=== PATIENT | female | born 1995 | race Hispanic/Latino ===

== ENCOUNTER 2017-04-30 04:03 | Emergency (ER) | payer SELFPAY ==
[2017-04-30 05:25] LABS: #Basophils 0.1 thou/uL (0.0-0.2); #Eosinphils 0.1 thou/uL (0.0-0.7); #Lymphocytes 3.2 thou/uL (1.20-3.40); #Monocytes 0.7 thou/uL (0.11-0.59); #Neutrophils 2.8 thou/uL (1.40-6.50); %Basophils 0.9 % (0.0-1.0); %Eosinophils 1.3 % (0.0-10.0); %Monocytes 9.5 % (0.0-10.0); Hematocrit 40.7 % (36.0-47.0); Mean Platelet Volume 7.9 fL (7.4-10.4); White Blood Cell (WBC) Count 6.9 thou/uL (4.8-10.8)
[2017-04-30 05:31] LABS: Bilirubin Negative (Negative); Blood, Urine Large (Negative); Glucose, Urine (Dipstick) Negative (Negative); Ketone, Urine Negative (Negative); Nitrite Negative (Negative); Protein, Urine (Dipstick) Negative (Neg-Trace); Urobilinogen 0.2 mg/dL (0.2-1.0)
[2017-04-30 05:33] LABS: Bacteria/HPF None Seen HPF (None Seen); Hyaline Casts/LPF 0-3 HYALINE CAST LPF (0-3 Hyaline); Squamous Epithelial 0-3 HPF (0-3)
== END 2017-04-30 07:18 | disposition home or self-care (01) ==
LOC: ERS 04:03
DX: N93.9 Abnormal uterine and vaginal bleeding, unspecified (principal); F41.9 Anxiety disorder, unspecified; J45.909 Unspecified asthma, uncomplicated
CPT/HCPCS: 81003; 81015; 81025; 85025; 86850; 86900; 86901; 87480; 87491; 87510; 87591; 87660; 99284

== ENCOUNTER 2017-09-07 17:20 | Emergency (ER) | payer OTHER, SELFPAY ==
[2017-09-07 18:18] LABS: BHCG - Serum POSITIVE (NEGATIVE); Pregs Control Background? CLEAR/WHITE (CLR/WHITE); Pregs Control Bar Appear? YES (CONTROL BAR)
[2017-09-07 18:27] LABS: ALT (SGPT) 36 U/L (8-55); AST (SGOT) 26 U/L (5-34); Albumin 3.9 g/dL (3.5-5.0); Alkaline Phosphatase 56 U/L (40-150); Anion Gap 11 mmol/L (10-20); BUN (Urea Nitrogen) 9 mg/dL (7.0-18.7); Bilirubin, Total 0.3 mg/dL (0.2-1.2); Calc. Creatinine Clearance 0 mL/min (70-130); Calcium 9.4 mg/dL (7.8-10.44); Carbon Dioxide 24 mmol/L (22-29); Chloride 105 mmol/L (98-107); Estimated GFR-MDRD Greater than 90; Globulin 3.3 g/dL (2.4-3.5); Glucose 87 mg/dL (70-105); Potassium 3.9 mmol/L (3.5-5.1); Protein, Total 7.2 g/dL (6.0-8.3); Sodium 136 mmol/L (136-145)
[2017-09-07 18:29] LABS: Mean Corpuscular HGB CONC 34.8 g/dL (32.0-36.0); Mean Corpuscular Hemoglobin 30.8 pg (27.0-31.0); Mean Corpuscular Volume 88.5 fl (81.0-99.0); Mean Platelet Volume 7.3 fL (7.4-10.4); Platelet Count 307 thou/uL (130-400); RBC Distribution Width 11.7 % (11.5-14.5); Red Blood Cell (RBC) Count 4.53 mill/uL (4.20-5.40); White Blood Cell (WBC) Count 8.5 thou/uL (4.8-10.8)
[2017-09-07 18:39] LABS: Band 7 % (5-11); Lymphocytes 37 % (21-51); MDiff Complete? YES; Monocytes 4 % (0-10); Neutrophil 46 % (42-75); PLT Morphology Comment Appears Adequate; RBC Morphology Normal; Reactive Lymphocytes 6 % (0-10)
[2017-09-07] MEDS ORDERED: metroNIDAZOLE 250 MG TAB ONE (21:06)
[2017-09-09 19:56] LABS: Chlamydia by PCR Not Detected (NotDetected); GC by PCR Not Detected (NotDetected)
== END 2017-09-07 21:57 | disposition home or self-care (01) ==
LOC: ERS 17:20
DX: O23.591 Infection of other part of genital tract in pregnancy, first trimester (principal); N76.0 Acute vaginitis; O20.9 Hemorrhage in early pregnancy, unspecified; Z3A.01 Less than 8 weeks gestation of pregnancy; O99.511 Diseases of the respiratory system complicating pregnancy, first trimester; J45.909 Unspecified asthma, uncomplicated; O99.341 Other mental disorders complicating pregnancy, first trimester; F41.9 Anxiety disorder, unspecified
CPT/HCPCS: 36415; 80053; 84702; 84703; 85025; 87480; 87491; 87510; 87591; 87660

== ENCOUNTER 2017-10-11 00:40 | Emergency (ER) | payer OTHER ==
[2017-10-11 01:17] LABS: Bilirubin Negative (Negative); Blood, Urine Large (Negative); Clarity CLEAR (Clear); Glucose, Urine (Dipstick) Negative (Negative); Leukocyte Negative (Negative); Nitrite Negative (Negative); Protein, Urine (Dipstick) Negative (Neg-Trace); Specific Gravity, Urine 1.008 (1.002-1.036)
[2017-10-11 01:19] LABS: Bacteria/HPF None Seen HPF (None Seen); Hyaline Casts/LPF 0-3 HYALINE CAST LPF (0-3 Hyaline); Pathc Cast-AUWi Flag 0.29 (0-2.49); Squamous Epithelial 0-3 HPF (0-3); WBC/HPF 0-3 HPF (0-3)
[2017-10-11 01:30] LABS: #Eosinphils 0.1 thou/uL (0.0-0.7); #Lymphocytes 3.7 thou/uL (1.20-3.40); #Monocytes 0.6 thou/uL (0.11-0.59); #Neutrophils 4.3 thou/uL (1.40-6.50); %Basophils 0.2 % (0.0-1.0); %Eosinophils 0.7 % (0.0-10.0); %Monocytes 7.1 % (0.0-10.0); Hemoglobin 13.2 g/dL (12.0-16.0); Mean Corpuscular HGB CONC 33.5 g/dL (32.0-36.0); Mean Corpuscular Hemoglobin 29.8 pg (27.0-31.0); Mean Corpuscular Volume 89.1 fl (81.0-99.0); Platelet Count 268 thou/uL (130-400); RBC Distribution Width 11.6 % (11.5-14.5); Red Blood Cell (RBC) Count 4.41 mill/uL (4.20-5.40); White Blood Cell (WBC) Count 8.7 thou/uL (4.8-10.8)
--- NOTE | 2017-10-11 07:50 | ULT ---
PRELIMINARY REPORT/[facility]/EMERGENCY AFTER HOURS PROCEDURE: EXAM: US Uterus, Limited EXAM DATE/TIME: Exam ordered 10/11/2017 1:07 AM CLINICAL HISTORY: 21 years old, female; Pain and signs and symptoms; Lmp or gestational age (in weeks): 12w3d; Antepart um complications; Bleeding; complicated by abdominal or pelvic pain; Left lower quadrant; S econd trimester; ; Patient HX: Light bleeding with urination, llq pain TECHNIQUE: Real-time ultrasound of the maternal uterus (limited) with image documentation. COMPARISON: No relevant prior studies available. FINDINGS: Fetus: There is a live intrauterine with estimated gestational age of 12 weeks 3 days. Position: Fetus is in transverse position. There is adequate amniotic fluid. Heart rate: heart rate measures 171 beats per minute. Placenta: There is a low-lying posterior placenta, grade 0. Vasa previa cannot be excluded. Adnexa: LEFT ovary measures 3.8 x 2.6 x 2.9 cm and contains a 1.8 cm simple cyst. The RIGHT ovary is not visualized. IMPRESSION: 1. There is a live intrauterine with estimated gestational age of 12 weeks 3 days. 2. Low lying placenta. Continued followup is advised. Thank you for allowing us to participate in the care of your patient. Dictated and Authenticated by: Ted Wiseman MD 10/11/2017 2:19 AM Central Time ([place] & [place]) FINAL REPORT ULTRASOUND PELVIC WITH DOPPLER: Date: 10/11/17 HISTORY: Vaginal bleeding. COMPARISON: None. TECHNIQUE: Real-time Quintero scale with color Doppler and spectral analysis of the pelvis performed via transabdomi nal approach. FINDINGS/IMPRESSION: Findings and impression are concordant with the preliminary report by Valeri. POS: [facility]
== END 2017-10-11 02:35 | disposition home or self-care (01) ==
LOC: ERS 00:40
DX: O20.0 Threatened abortion (principal); O99.511 Diseases of the respiratory system complicating pregnancy, first trimester; J45.909 Unspecified asthma, uncomplicated; O99.341 Other mental disorders complicating pregnancy, first trimester; F41.9 Anxiety disorder, unspecified; F32.9 Major depressive disorder, single episode, unspecified; Z3A.12 12 weeks gestation of pregnancy
CPT/HCPCS: 36415; 76856; 81003; 81015; 84702; 85025; 86900; 86901; 93976

== ENCOUNTER 2017-10-11 09:08 | Emergency (ER) | payer OTHER | END 2017-10-11 12:00 | disposition home or self-care (01) | LOC: ERS 09:08 | DX: O20.0 Threatened abortion (principal); O99.511 Diseases of the respiratory system complicating pregnancy, first trimester; J45.909 Unspecified asthma, uncomplicated; O99.341 Other mental disorders complicating pregnancy, first trimester; F41.9 Anxiety disorder, unspecified; F32.9 Major depressive disorder, single episode, unspecified; Z3A.12 12 weeks gestation of pregnancy | CPT/HCPCS: 36415; 76856; 81003; 81015; 84702; 85025; 86900; 86901; 93976; 99284 ==

== ENCOUNTER 2017-11-03 18:02 | Emergency (ER) | payer OTHER ==
[2017-11-03] MEDS ORDERED: Acetaminophen 500 MG TAB ONE (19:11)
== END 2017-11-03 20:05 | disposition home or self-care (01) ==
LOC: ERS 18:02
DX: O98.512 Other viral diseases complicating pregnancy, second trimester (principal); B34.9 Viral infection, unspecified; O99.512 Diseases of the respiratory system complicating pregnancy, second trimester; J45.909 Unspecified asthma, uncomplicated; O99.342 Other mental disorders complicating pregnancy, second trimester; F41.9 Anxiety disorder, unspecified; F32.9 Major depressive disorder, single episode, unspecified; Z3A.15 15 weeks gestation of pregnancy
CPT/HCPCS: 87081; 87430; 99283

== ENCOUNTER 2018-02-07 19:41 | Day surgery (SDC) | payer OTHER ==
[2018-02-07 20:28] VITALS: BP 108/66; TEMP 98.3; BMI 34.6
--- NOTE | 2018-02-07 21:12 | PDOC.FPROB ---
FMR OB H&P: HPI - History of Present Illness Chief Complaint: cramps, back pain History of Present Illness: This is a 22 yo F @ 29wks by LMP c/w 12w3d sono here for cramps and back pain. The cramps have been occuring 3-4 times a day for 2 days. The cramps are located in the upper abdomen and do not radiate. They are exacerbated by walking around, nothing has made them better. The back pain started on Sunday, no pain on Sunday, and the pain returned today. The pain is located in the lower back, is intermittent, and dull. States she feels vaginal pressure. Patient endorses vaginal discharge that was white and now clear - no odor. States she has had increased frequency of urination but no burning, itching or irritation with urination. Patient also endorses nausea, with no vomiting, and diarrhea. The diarrhea has been occuring about 1-3 X per day, is loose, watery, non-bloody. Denies fever, SOB, headache, chest pain, vision changes, or LLE swelling. Primary Care Physician: Kalin FMR OB H&P: Current - Care : 1 Para: 0 Gestational age: 29 Due date: 04/25/18 Dating Criteria: LMP c/w 12.3wk sono Course/Complications: hyperemesis gravidarum - OB Labs Blood type: O RH: positive Antibody Screen: negative HIV: negative RPR: negative HepBsAg: negative Rubella: immune Gonorrhea: negative Chlamydia: negative GBS: unknown H&H: 13.1/38.8 FMR OB H&P: History - Past Medical History PMH: asthma - Surgical History Sx History: none - Social History Social History: denies alcohol, tobacco or drug use - Family History Family History: mother - DM FMR OB H&P: ROS - Review of Systems General: denies: fever/chills, fatigue Eyes: denies: vision changes, double vision, scotomas, floaters Cardiovascular: denies: chest pain, palpitation, edema Respiratory: denies: shortness of breath Gastrointestinal: reports: abdominal pain, cramping, nausea, diarrhea. denies: vomiting, constipation, bright red blood, dark black tarry stools Genitourinary (Female): reports: polyuria, vaginal discharge, vaginal pressure. denies: incontinence, dysuria, hematuria, vaginal pain, vaginal bleeding, contractions FMR OB H&P: Vital Signs - Maternal Vital signs: Vital Signs - First Documented Temp Pulse Resp BP 98.3 F 81 20 108/66 02/07/18 20:19 02/07/18 20:19 02/07/18 20:19 02/07/18 20:19 - Heart Tones Baseline: 140 Variability: moderate Acceleration: present Deceleration: absent Category: category 1 FMR OB H&P: Physical Exam - Physical Exam General: NAD, awake, alert and oriented HEENT: normocephalic and atraumatic, EOMI, MMM, grossly normal vision, grossly normal hearing Neck: FROM Chest: non-tender to palpation, no lesions Heart: RRR, normal S1/S2, no murmurs/rubs/gallops General: CTAB, no respiratory distress, good air movement, no wheezing Abdomen: gravid, non-tender, bowel sound present Musculoskeletal: FROM in all four extremities Skin: no rash, good tugor Psychiatric: intact recent and remote memory, good judgement and insight - Pelvic Exam Vulva: normal hair distribution, no masses, no lesions Deviation from normal: thin, white discharge, no odor Cervix: no masses, no lesions, no blood Deviation from normal: closed FMR OB H&P: A/P - Problem List (1) Intrauterine Current Visit: Yes Status: Acute Code(s): Z34.90 - ENCNTR FOR SUPRVSN OF NORMAL , UNSP, UNSP TRIMESTER Disposition: This is a 22 yo F G1PO presenting for cramps and back pain. sIUP - Will perform sterile spec exam - spec exam findings: creamy white discharge, no odor - Will order FFN, VP3 - Will obtain UA - Encourage PO hydration Case discussed with Dr. Virk Discussion: Date/Time: 02/07/182109 This H&P was discussed with [] and [] who agree with the above documentation and plan.
[2018-02-07 22:12] LABS: FFN Internal QC Analyzer PASS (PASS); FFN Internal QC Cassette PASS (PASS); Fetal Fibronectin Negative (Negative)
[2018-02-07 22:22] LABS: Bilirubin Negative (Negative); Blood, Urine Negative (Negative); Clarity CLEAR (Clear); Glucose, Urine (Dipstick) Negative (Negative); Leukocyte Negative (Negative); Nitrite Negative (Negative); Protein, Urine (Dipstick) Negative (Neg-Trace); Specific Gravity, Urine 1.008 (1.002-1.036); Urobilinogen 0.2 mg/dL (0.2-1.0); pH, Urine 6.5 (5.0-9.0)
[2018-02-07 22:23] LABS: Bacteria/HPF None Seen HPF (None Seen); Hyaline Casts/LPF 0-3 HYALINE CAST LPF (0-3 Hyaline); Pathc Cast-AUWi Flag 0.14 (0-2.49); RBC/HPF 0-3 HPF (0-3); Squamous Epithelial 0-3 HPF (0-3); WBC/HPF 0-3 HPF (0-3)
== END 2018-02-07 23:10 | disposition home or self-care (01) ==
LOC: L&D/OP 19:41
PROVIDERS: ATTEND Obstetrics & Gynecology
DX: O99.89 Other specified diseases and conditions complicating pregnancy, childbirth and the puerperium (principal); R10.10 Upper abdominal pain, unspecified; M54.5 Low back pain; N89.8 Other specified noninflammatory disorders of vagina; O99.513 Diseases of the respiratory system complicating pregnancy, third trimester; J45.909 Unspecified asthma, uncomplicated; O21.0 Mild hyperemesis gravidarum; Z3A.29 29 weeks gestation of pregnancy; Z79.899 Other long term (current) drug therapy
CPT/HCPCS: 81001; 82731; 87480; 87510; 87660; 99285

== ENCOUNTER 2018-02-25 00:48 | Day surgery (SDC) | payer OTHER ==
[2018-02-25 01:30] VITALS: BMI 34.4
--- NOTE | 2018-02-25 02:23 | PDOC.LDHP ---
Labor and Delivery H&P Chief complaint: abdominal pain, decreased movement HPI: 22 yr old at 31.5 wks by LMP/12.3 wk sono presents for abdominal hardening and back pain. She also notes decreased movement during that time however states she now feels baby moving. She states her belly gts hard and the back pain becomes more severe. The back pain is present constantly though for the last 7 hours. The contractions have been present for about 1.5 hours and occuring about every 10 minutes per patient. She was treated for BV about 3 weeks ago. She denies vaginal discharge or bleeding at this time. Denies LOF. Denies dysuria. She had a baby shower today, but notes it lasting around 3 hours and no strenuous activity. She was sitting most of the time, no lifting. 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 Current gestational age (weeks): 31 (5) Due date: 04/24/18 Grav: 1 Para: 0 OB History Details: concern for placenta previa, resolved on 23 wk sono. anatomy scan at 23 wks- no anomalies noted. Current complications: none Abnormal US findings: No Past Medical History: none Current medications: pre- vitamins, other (tums) Previous surgical history: other (teeth extraction) Social history: none - Physical Exam Vital signs reviewed and normal: yes (BP: 108/58 temp: 97.9 HR: 78 pulse ox: 98% RR: 16) General: NAD, resting Heart: RRR Lungs: nonlabored breathing Abdomen: NTTP Extremeties: other (2+ reflex in LUE) FHT: category 1 (baseline 125, + accels, no decels) [place] contractions every: q 10 min - Vaginal Exam cm dilated: 1 Effacement: 0% Station: -3 - OB Labs Blood type: O RH: positive Antibody Screen: negative HIV: negative RPR: negative HEPSAg: negative Rubella: immune Additional Labs: GC/C negative on 09/10/17 Quad negative - Assessment 22 yr old at 31.5 wks by LMP/12.3 wk sono with contractions 1. intrauterine with concern for labor- unlikely given cervical exam. Will send fibronectin and UA. PO hydrate and recheck in couple hours. If contractions resolve, likely 2/2 dehydration. <rTina Arevalo - Last Filed: 02/25/18 02:49> <Ana Cook - Last Filed: 02/25/18 07:16> Allergies/Adverse Reactions: Allergies Allergy/AdvReac Type Severity Reaction Status Date / Time No Known Allergies Allergy Verified 02/25/18 01:23 Attending Addendum - Attending Addendum Date/Time: 02/25/18714 I personally evaluated the patient and discussed the management with Dr. Arevalo. I agree with the History, Examination, Assessment and Plan documented above with any addition or exceptions noted below. No e/o PTL with no change in exam and negative FFN. UA wnl. status reassuring with reactive NST. D/c home with precautions. <Ana Cook - Last Filed: 02/25/18 07:16>
[2018-02-25 03:09] LABS: Bilirubin Negative (Negative); Blood, Urine Moderate (Negative); Clarity CLEAR (Clear); Glucose, Urine (Dipstick) 250 mg/dL (Negative); Leukocyte Negative (Negative); Nitrite Negative (Negative); Protein, Urine (Dipstick) Negative (Neg-Trace); Specific Gravity, Urine 1.017 (1.002-1.036)
[2018-02-25 03:25] LABS: FFN Internal QC Analyzer PASS (PASS); FFN Internal QC Cassette PASS (PASS); Fetal Fibronectin Negative (Negative)
== END 2018-02-25 04:45 | disposition home or self-care (01) ==
LOC: L&D/OP 00:48
PROVIDERS: ATTEND Obstetrics & Gynecology
DX: O47.03 False labor before 37 completed weeks of gestation, third trimester (principal); O99.89 Other specified diseases and conditions complicating pregnancy, childbirth and the puerperium; R10.9 Unspecified abdominal pain; M54.9 Dorsalgia, unspecified; Z3A.31 31 weeks gestation of pregnancy; Z79.899 Other long term (current) drug therapy
CPT/HCPCS: 81003; 81015; 82731; 99285; A4353

== ENCOUNTER 2018-03-11 15:41 | Day surgery (SDC) | payer OTHER ==
[2018-03-11 16:32] VITALS: BMI 34.4
[2018-03-11] MEDS ORDERED: Betamet Acet/Betamet Na Ph 30 MG/5 ML VIAL IM SCH (17:15)
[2018-03-11] MEDS ORDERED: Betamet Acet/Betamet Na Ph 30 MG/5 ML VIAL ONE (17:38)
--- NOTE | 2018-03-11 17:43 | PRG ---
DATE OF SERVICE: 03/11/2018 TIME OF SERVICE: 1715. PRESENTING COMPLAINT: Contractions, decreased movement at 33-1/2 weeks gestation. HISTORY OF PRESENT ILLNESS: Ms. Healy is a 22-year-old primigravida with an EDC of 04/24/2018. S he has presented to labor and delivery 2 previous times complaining of contractions over the past sun. She presents today complaining of contractions. She denies bleeding, rupture of membranes. She also reports decreased movement prior to presentation here. The patient reports that she had a penetrating vaginal intercourse this morning for 2 time. OB AND MEDICAL BILLER/CODER HISTORY: O positive, antibody negative, Pap negative, rubella immune, VDRL nonreactive, h epatitis B, GC chlamydia negative, passed her three hour GTT. The patient had her Tdap and her flu s hot for this . PAST MEDICAL HISTORY: Denies. PAST SURGICAL HISTORY: Denies. ALLERGIES: Denies. MEDICATIONS: vitamins. SOCIAL HISTORY: Denies tobacco, alcohol, or drug use. FAMILY HISTORY: Noncontributory. REVIEW OF SYSTEMS: Noncontributory. PHYSICAL EXAMINATION: GENERAL: female in no acute distress. VITAL SIGNS: Temperature 97, respirations 18, blood pressure 118/72, pulse 85. HEENT: Within normal limits. LUNGS: Clear to auscultation bilaterally. HEART: Regular rhythm. BREASTS: No masses bilaterally. ABDOMEN: Soft, nontender, no rebound or guarding. Fundal height 33, 34 cm. FHTs 130s. PELVIC: Vulva without lesions. Vagina without discharge. Cervix posterior closed, 25% effaced, cep halic. A medium consistency. EXTREMITIES: Without clubbing, cyanosis or edema. heart rate monitoring reveals occasional contractions/uterine irritability without evidence of labor. She is a category 1 heart rate tracing. IMPRESSION: Contractions that come and go without evidence of active labor at 33 weeks gesta tion with 2 prior presentations to Labor and Delivery unit, a fibronectin unable to be performe d secondary to penetrating vaginal intercourse. PLAN: Betamethasone 12 mg IM x1 today. The patient to be discharged home. Return in 24 hours for a second betamethasone for lung maturation. ER precautions. The patient to keep scheduled foll owup with Dr. Ferrari at the Clinic.
== END 2018-03-11 17:48 | disposition home or self-care (01) ==
LOC: L&D/OP 15:41
PROVIDERS: ATTEND Obstetrics & Gynecology
DX: O47.03 False labor before 37 completed weeks of gestation, third trimester (principal); O36.8130 Decreased fetal movements, third trimester, not applicable or unspecified; Z3A.33 33 weeks gestation of pregnancy
CPT/HCPCS: 96372; 99282; J0702

== ENCOUNTER 2018-03-12 16:49 | Day surgery (SDC) | payer OTHER ==
[2018-03-12 17:09] VITALS: BMI 34.4
[2018-03-12] MEDS ORDERED: Betamet Acet/Betamet Na Ph 30 MG/5 ML VIAL IM SCH (17:30)
[2018-03-12] MEDS ORDERED: Betamet Acet/Betamet Na Ph 30 MG/5 ML VIAL ONE (17:41)
--- NOTE | 2018-03-12 18:11 | PDOC.LDHP ---
Labor and Delivery H&P Chief complaint: other (2nd steroid shot) HPI: 22 yo LAF G1 seen by Dr. Galvez yesterday with several episodes of PT UCs. Steroids given at that time. Cervix was closed. She has no c/o today. Current gestational age (weeks): 33 Due date: 04/24/18 Dating criteria: last menstrual period Grav: 1 Para: 0 OB History Details: PNC at Clinic. Hx. as above. Current complications: none Abnormal US findings: No Past Medical History: None Current medications: pre-hafsa vitamins Previous surgical history: none Allergies/Adverse Reactions: Allergies Allergy/AdvReac Type Severity Reaction Status Date / Time No Known Allergies Allergy Verified 03/11/18 16:31 Social history: none - Physical Exam Vital signs reviewed and normal: yes General: NAD Lungs: nonlabored breathing Abdomen: gravid Extremeties: no edema FHT: category 1 [place] contractions every: No UCs seen. - Assessment 33 week IUP h/o persistant PT UCs, 1st dose steroids given yesterday - Plan -: 2nd dose of steroids give. PTL precautions reviewed. Has appt. at PNC this Sunday
== END 2018-03-12 17:47 | disposition home or self-care (01) ==
LOC: L&D/OP 16:49
PROVIDERS: ATTEND Obstetrics & Gynecology
DX: Z29.8 Encounter for other specified prophylactic measures (principal); Z79.899 Other long term (current) drug therapy; Z3A.33 33 weeks gestation of pregnancy
CPT/HCPCS: 96372; 99282; J0702

== ENCOUNTER 2018-04-17 19:21 | Day surgery (SDC) | payer OTHER ==
[2018-04-17 20:07] VITALS: BMI 35.6
--- NOTE | 2018-04-17 20:50 | PDOC.LDHP ---
Labor and Delivery H&P Chief complaint: other (PNC here for CTX) HPI: 22yo G1 at 39 weeks 0 days woith possible LOF. Good FM. EGA is based on first trimester sono and LMP. Contractions for 2 hrs about every 5 minutes. No gush of fluid, just leaking. No fever Current gestational age (weeks): 39 Due date: 04/24/18 Grav: 1 Para: 0 Current complications: none Past Medical History: Asthma-- well controlled. No attack in 2 years Current medications: pre- vitamins Previous surgical history: none Allergies/Adverse Reactions: Allergies Allergy/AdvReac Type Severity Reaction Status Date / Time No Known Allergies Allergy Verified 03/11/18 16:31 Social history: none - Physical Exam Vital signs reviewed and normal: yes (BP 121/74 83 16 afebrile) General: NAD Heart: RRR FHT: category 1 (150s) [place] contractions every: 4-6 on toco - Assessment Full Term with possible early labor and LOF; GBS pos - Plan Plan: other (Amnisure, sterile spec, then exam...admit if active labor or evidence of ROM. PCN once admitted)
[2018-04-17 21:03] LABS: Amnisure Test No Membranes Rupture (No Rupture)
[2018-04-17 21:04] LABS: Amnisure Internal Control QC ACCEPTABLE (ACCEPTABLE)
--- NOTE | 2018-04-17 21:12 | PDOC.EVN ---
Event Note - Event Note Event Note: sterile spec exam preformed - neg pooling, cough, valsalva for fluid - cervix grossly closed - amnisure neg Cervical exam by Dr. Fuentes /-2 rupture of membranes ruled out, ok to DC. Labor precautions given and understood , induction of labor discussed. pt declines at this time.
== END 2018-04-17 21:25 | disposition home health service, planned readmission (86) ==
LOC: L&D/OP 19:21
PROVIDERS: ATTEND Obstetrics & Gynecology
DX: O47.1 False labor at or after 37 completed weeks of gestation (principal); Z3A.39 39 weeks gestation of pregnancy; Z79.899 Other long term (current) drug therapy; Z22.330 Carrier of Group B streptococcus
CPT/HCPCS: 84112; 99284

== ENCOUNTER 2018-04-22 01:15 | Day surgery (SDC) | payer OTHER ==
[2018-04-22 02:05] VITALS: BP 112/73; TEMP 98.4; BMI 35.2
--- NOTE | 2018-04-22 02:26 | PDOC.FPROB ---
FMR OB H&P: HPI - History of Present Illness Chief Complaint: Contractions Indentification: 22 yo @ 39.5 by 12.1 wk sono c/w LMP History of Present Illness: 22 yo @ 39.5 by 12.1 wk sono c/w LMP presents with CC of contractions q6-8 minutes at home. States she has to breathe through contractions. Baby is moving well, no LOF, no vaginal bleeding, no abnormal discharge. She reports drinking a lot of water. Associated sx burning with urination, no hematuria. Also reports some swelling in her ankles starting this week. Denies headache, fever, nausea/vomiting. +Constipation. FMR OB H&P: Current - Care : 1 Para: 0 Gestational age: 39.5 Due date: 04/24/18 Dating Criteria: 12.1 wk sono c/w LMP Course/Complications: Placenta previa, resolved at 23 wk sono GBS+ - OB Labs Blood type: O RH: positive HIV: negative RPR: negative Rubella: immune Quad screen: negative Gonorrhea: negative Chlamydia: negative GBS: positive H&H: 11.7 on 03/01/18 - First Trimester Ultrasound First trimester: Placenta previa - Additional Ultrasound Additional: Placenta previa resolved FMR OB H&P: History - Past Medical History PMH: Asthma - OB History OB History: - Surgical History Sx History: No surgeries - Social History Social History: Denies alcohol/tobacco. Drug use (marijuana) prior to . - Family History Family History: Family history of DM in mother, HTN in Father. FMR OB H&P: Medications - Current Home Medications: Medication Instructions Recorded Confirmed Type Vit Calc,Iron,Folic 1 tab PO 02/07/18 History [ Vitamins] Allergies/Adverse Reactions: Allergies Allergy/AdvReac Type Severity Reaction Status Date / Time No Known Allergies Allergy Verified 04/22/18 02:42 FMR OB H&P: ROS - Review of Systems General: denies: fever/chills Eyes: denies: eye pain, vision changes ENT: denies: nasal congestion, rhinorrhea, ear pain Cardiovascular: denies: chest pain, palpitation Respiratory: denies: cough, congestion, shortness of breath Gastrointestinal: reports: constipation. denies: abdominal pain, nausea, vomiting, diarrhea, bright red blood Genitourinary (Female): reports: dysuria, contractions. denies: hematuria, vaginal discharge, vaginal bleeding Musculoskeletal: reports: swelling (ankles) Integumentary: denies: itching, rash, lesions Hematologic/Lymphatic: denies: prolonged or excessive bleeding FMR OB H&P: Vital Signs - Maternal Vital signs: Vital Signs - First Documented Temp Pulse Resp BP 98.4 F 64 16 112/73 04/22/18 01:55 04/22/18 01:55 04/22/18 01:55 04/22/18 01:55 - Heart Tones Baseline: 135 Variability: moderate Acceleration: present Deceleration: absent [place] contractions every: q5-7 min, irregular FMR OB H&P: Physical Exam - Physical Exam General: NAD, awake, alert and oriented HEENT: normocephalic and atraumatic, PERRLA, EOMI, MMM, conjunctiva clear Neck: supple, no LAD Heart: RRR, normal S1/S2, no murmurs/rubs/gallops Deviation from normal: 1+ pitting edema in ankles General: CTAB, no respiratory distress, no wheezing Abdomen: soft, gravid, bowel sound present Musculoskeletal: pulses present Skin: no rash, good tugor, capillary refill <2 seconds Lymphatic: no unusual bruising or bleeding Psychiatric: intact recent and remote memory, good judgement and insight, normal mood and affect FMR OB H&P: A/P - Problem List (1) Intrauterine Current Visit: No Status: Acute Code(s): Z34.90 - ENCNTR FOR SUPRVSN OF NORMAL , UNSP, UNSP TRIMESTER Discussion: Date/Time: 04/22/18 022 22 yo @ 39.5 by 12.1 wk sono c/w LMP presents for contractions. #SIUP -SVE: 60/-3 -FHTs: baseline 135, accels present, no decels, occasional contractions that are irregular -GBS+ -Placenta previa, resolved -Recheck cervix in 1 hour, if unchanged will send home with precautions #Dysuria, concern for UTI -UA clean catch pending -If positive, will treat UTI Attending Addendum - Attending Addendum Date/Time: 04/22/18 0633 I personally evaluated the patient and discussed the management with Dr. iGllis. I agree with the History, Examination, Assessment and Plan documented above.
[2018-04-22 03:12] LABS: Bilirubin Negative (Negative); Blood, Urine Negative (Negative); Clarity CLOUDY (Clear); Glucose, Urine (Dipstick) 100 mg/dL (Negative); Leukocyte Moderate (Negative); Nitrite Negative (Negative); Protein, Urine (Dipstick) Negative (Neg-Trace); Specific Gravity, Urine 1.017 (1.002-1.036)
[2018-04-22 03:14] LABS: Bacteria/HPF 1+ HPF (None Seen); Hyaline Casts/LPF 0-3 HYALINE CAST LPF (0-3 Hyaline); Pathc Cast-AUWi Flag 0.58 (0-2.49); RBC/HPF 0-3 HPF (0-3); WBC/HPF 21-50 HPF (0-3)
--- NOTE | 2018-04-22 03:19 | PDOC.EVN ---
Event Note - Event Note Event Note: Patient desires to go home. Discussed labor precautions. Will call the patient ) if the UA result is positive for UTI. Patient prefers [facility].
--- NOTE | 2018-04-22 04:03 | PDOC.EVN ---
Event Note - Event Note Event Note: +UA. Prescribed Amox-clav 500 mg PO BID for 5 days. Called and discussed with patient.
== END 2018-04-22 03:26 | disposition home or self-care (01) ==
LOC: L&D/OP 01:15
PROVIDERS: ATTEND Obstetrics & Gynecology
DX: O62.9 Abnormality of forces of labor, unspecified (principal); O99.511 Diseases of the respiratory system complicating pregnancy, first trimester; J45.909 Unspecified asthma, uncomplicated; O99.89 Other specified diseases and conditions complicating pregnancy, childbirth and the puerperium; R30.0 Dysuria; Z3A.12 12 weeks gestation of pregnancy
CPT/HCPCS: 81003; 81015; 99283

== ENCOUNTER 2018-04-25 06:15 | Day surgery (SDC) | payer OTHER ==
[2018-04-25 06:41] VITALS: BMI 35.7
[2018-04-25] MEDS ORDERED: Promethazine HCl 25 MG/ML VIAL IM PRN (09:00)
[2018-04-25] MEDS ORDERED: Morphine 10 MG/ML VIAL IM SCH (09:00)
== END 2018-04-25 09:21 | disposition home health service (06) ==
LOC: L&D/OP 06:15
PROVIDERS: ATTEND Obstetrics & Gynecology
DX: O60.03 Preterm labor without delivery, third trimester (principal); Z3A.40 40 weeks gestation of pregnancy
CPT/HCPCS: 96372; 99283; J2270; J2550

== ENCOUNTER 2018-04-26 23:25 | Inpatient (IN) | payer MEDICAID, OTHER, SELFPAY ==
[2018-04-27 00:04] VITALS: BMI 35.7
[2018-04-27] MEDS ORDERED: Acetaminophen 500 MG TAB PO PRN (00:47)
[2018-04-27] MEDS ORDERED: NS / Oxytocin 40 units/1000ml 1,000 ML IV PRN (00:47)
[2018-04-27] MEDS ORDERED: Butorphanol Tartrate 1 MG/ML VIAL SLOW IVP PRN (00:47)
[2018-04-27] MEDS ORDERED: Ondansetron PF 4 MG/2 ML Vial IVP PRN ×2 (00:47→06:19)
[2018-04-27] MEDS ORDERED: Ibuprofen 800 MG TAB PO PRN (00:47)
[2018-04-27] MEDS ORDERED: Lidocaine 1% (PF) 30 ML VIAL SC PRN (00:47)
[2018-04-27] MEDS ORDERED: Promethazine HCl 25 MG/ML VIAL IM PRN ×2 (00:47→06:19)
[2018-04-27] MEDS ORDERED: Docusate 100 MG CAP PO PRN (00:47)
--- NOTE | 2018-04-27 00:50 | PDOC.EVN ---
Event Note - Event Note Event Note: 04/27/18 at 0100: OBGYN Attending Admission H&P 22 yo G1 with EDC 04/24 now at 40 weeks 3 dats with contractions. Was 1 cm recently. No LOF, No VB. Denies other issues. Patient of the clinic Patient seen with Dr Glynn Allergies none OB HX: G1 Social: Negative Med HX: noncontributory Physical: Vss afebrile FHTs 140s Contractions every 3 minutes CX 100/0/I Assessment/Plan: Full term, GBS pos, early labor. Admit to L&D PCN for GBS pos Pain meds Pitocin prn Please see Gretta Laird.
--- NOTE | 2018-04-27 00:55 | PDOC.FPROB ---
FMR OB H&P: HPI - History of Present Illness Chief Complaint: Contractions Indentification: at 40.3 wks History of Present Illness: 22 year old at 40.3 wks by LMP/12.1 wk sono presents with frequent contractions q4min since 22:00. Patient denies LoF, vaginal bleeding, or vaginal discharge. Patient endorses good movement. Patient denies complications during . Primary Care Physician: SHELLI Gagnon FMR OB H&P: Current - Care : 1 Para: 0 Gestational age: 40.3 wks Due date: 04/24/2018 Dating Criteria: LMP/12.1 wk sono - OB Labs Blood type: O RH: positive Antibody Screen: negative HIV: negative RPR: negative HepBsAg: negative Rubella: immune 1 hour gtt: 86 GBS: positive FMR OB H&P: History - Past Medical History PMH: Asthma - OB History OB History: Placenta previa, resolved - DIRECTOR COST History DIRECTOR COST History: None - Surgical History Sx History: None - Social History Social History: Denies tobacco, alcohol, or drug use - Family History Family History: Maternal history of DM FMR OB H&P: Medications - Current Home Medications: Medication Instructions Recorded Confirmed Type Vit Calc,Iron,Folic 1 tab PO 02/07/18 History [ Vitamins] Amoxicillin 500 mg PO BID 04/26/18 04/27/18 History Allergies/Adverse Reactions: Allergies Allergy/AdvReac Type Severity Reaction Status Date / Time No Known Allergies Allergy Verified 04/25/18 06:37 FMR OB H&P: ROS - Review of Systems General: denies: fever/chills Eyes: denies: vision changes, double vision ENT: denies: nasal congestion, rhinorrhea, sore throat Cardiovascular: denies: chest pain, edema Respiratory: denies: cough, congestion Gastrointestinal: denies: abdominal pain, nausea, vomiting, diarrhea Genitourinary (Female): reports: contractions. denies: dysuria, vaginal discharge, vaginal pain, vaginal bleeding Musculoskeletal: denies: pain, stiffness Integumentary: denies: itching, rash Hematologic/Lymphatic: denies: prolonged or excessive bleeding, enlarged lymph nodes Psychological: denies: depression, anxiety FMR OB H&P: Vital Signs - Maternal Vital signs: Vital Signs - First Documented Temp Pulse Resp BP 98.3 F 68 20 120/80 04/26/18 23:56 04/26/18 23:56 04/26/18 23:56 04/26/18 23:56 - Heart Tones Baseline: 130 Variability: moderate Acceleration: present Deceleration: absent Category: category 1 [place] contractions every: q4 min FMR OB H&P: Physical Exam - Physical Exam General: awake, alert and oriented Deviation from normal: Breathing through contractions HEENT: MMM, grossly normal vision, grossly normal hearing Neck: supple Heart: RRR, pulses present, no edema General: no respiratory distress, good air movement Abdomen: soft, gravid, non-tender Musculoskeletal: pulses present Neurological: no tremor, no focal deficit Skin: no rash, capillary refill <2 seconds Lymphatic: no unusual bruising or bleeding, no purpura Psychiatric: intact recent and remote memory, good judgement and insight, normal mood and affect - Pelvic Exam SVE: 100/-1, intact FMR OB H&P: A/P - Problem List (1) Term Current Visit: Yes Status: Acute Code(s): Z34.80 - ENCOUNTER FOR SUPRVSN OF NORMAL , UNSP TRIMESTER (2) First stage of labor Current Visit: Yes Status: Acute Code(s): [id number] - (3) GBS (group B Streptococcus carrier), +RV culture, currently Current Visit: Yes Status: Acute Code(s): O99.820 - STREPTOCOCCUS B CARRIER STATE COMPLICATING Disposition: 22 year old at 40.3 wks by LMP/12.1 wk sono presents with contractions Term IUP in labor - /-2, intact: change from yesterday - Recheck in 2 hours - Consider AROM at next check - Expectant management - Penicillin for GBS positive status - Epidural for pain management GBS positive - Penicillin for GBS prophylaxis Dispo: Admit to L&D for expectant management. Discussion: Date/Time: 04/27/1850 This H&P was discussed with Dr. Fuentes who agrees with the above documentation and plan. Signature: Ethel Glynn, PGY-2
[2018-04-27] MEDS ORDERED: Penicillin G Potassium 5 MILL.UNITS in Sodium Chloride 0.9% 100 ML IVPB SCH (01:00)
[2018-04-27] MEDS: Lactated Ringer's 1,000 ML IV SCH ×3 (01:20→13:02)
[2018-04-27 01:43] LABS: Hemoglobin 13.1 g/dL (12.0-16.0); Mean Corpuscular HGB CONC 33.3 g/dL (32.0-36.0); Mean Corpuscular Hemoglobin 28.4 pg (27.0-31.0); Mean Corpuscular Volume 85.2 fL (78.0-98.0); Mean Platelet Volume 9.2 fL (7.4-10.4); Platelet Count 206 thou/uL (130-400); RBC Distribution Width 13.4 % (11.5-14.5); Red Blood Cell (RBC) Count 4.62 mill/uL (4.20-5.40); White Blood Cell (WBC) Count 8.7 thou/uL (4.8-10.8)
[2018-04-27] MEDS ORDERED: Fentanyl 4 mcg/Bup 0.1% Cadd 100 ML ONE ×2 (01:58→10:24)
[2018-04-27] MEDS ORDERED: Lidocaine 1.5%/Epinephrine 1:200,000 5 ML AMPUL IJ ONE (02:20)
[2018-04-27 02:21] LABS: HBSAg Index 0.24 S/CO (0-0.99); Hep B Surf Ag Non-Reactive S/CO (NonReactive)
[2018-04-27 04:03] LABS: Syphilis Antibody Nonreactive (Nonreactive); Syphilis Antibody Index 0.04 S/CO (<1.00 Non-Reactive)
[2018-04-27] MEDS: Penicillin G 2.5 MILL.units 2.5 MILL.UNITS in Premix Bag 1 BAG IVPB SCH ×2 (05:06→09:07)
--- NOTE | 2018-04-27 06:08 | PDOC.LDPN ---
Labor & Delivery Progress Note - Subjective Subjective: comfortable - Objective Vital signs reviewed and normal: yes General: NAD Uterine fundus: non tender SVE: 6:00 Dilation: 5 Effacement: 100% Station: -1 FHT: category 1, variability present [place] contractions every: q4 min AROM: clear fluid (6:00 blood tinged) - Assessment (1) Term Code(s): Z34.80 - ENCOUNTER FOR SUPRVSN OF NORMAL , UNSP TRIMESTER Current Visit: Yes Status: Acute (2) First stage of labor Code(s): [id number] - Current Visit: Yes Status: Acute (3) GBS (group B Streptococcus carrier), +RV culture, currently Code(s): O99.820 - STREPTOCOCCUS B CARRIER STATE COMPLICATING Current Visit: Yes Status: Acute Plan: continue plan of care
[2018-04-27] MEDS ORDERED: Lactated Ringer's 500 ML IV PRN (06:19)
[2018-04-27] MEDS ORDERED: Acetaminophen 325 MG TAB PO PRN (06:19)
[2018-04-27] MEDS ORDERED: Naloxone HCl 0.4 mg/ml Vial IVP PRN ×2 (06:19)
[2018-04-27] MEDS ORDERED: ePHEDrine/0.9% NaCl/PF SYRINGE 50 mg/10 ml SLOW IVP PRN (06:19)
[2018-04-27] MEDS ORDERED: diphenhydrAMINE 50 MG/ML VIAL IVP PRN (06:19)
[2018-04-27] MEDS ORDERED: Eucerin (Mineral Oil/Petrolatum,White) 30 gm Jar TOP PRN (06:19)
[2018-04-27] MEDS ORDERED: Communication Order-Pharmacy FS SCH (06:30)
[2018-04-27] MEDS ORDERED: Fentanyl 4 mcg/Bupivacaine 0.1% Cassette 100 ML EPIDURAL SCH (06:30)
[2018-04-27] MEDS ORDERED: NS w/ Oxytocin 10 units 500 ML IV SCH (07:15)
[2018-04-27] MEDS ORDERED: Lidocaine 1% (PF) 30 ML VIAL ONE (10:45)
[2018-04-27] MEDS ORDERED: Bupivacaine HCl 0.25%/Epi 0.0005/PF 10 ML VIAL FS ONE (11:11)
[2018-04-27 11:43] LABS: Actual Bicarbonate (HCO3a) 23.6 mEq/L (22-28); Analyzer IN Cardio OR; Base Excess (BEa) -6.2 mEq/L (-2.0 to +3.0)
[2018-04-27] MEDS ORDERED: diphenhydrAMINE 25 MG CAP PO PRN (12:09)
[2018-04-27] MEDS ORDERED: Bisacodyl 10 MG SUPP PR PRN (12:09)
[2018-04-27] MEDS ORDERED: Misoprostol 200 MCG TAB VAG PRN (12:09)
[2018-04-27] MEDS ORDERED: Milk Of Magnesia 30 ML UDCUP PO PRN (12:09)
[2018-04-27] MEDS ORDERED: Lanolin Ointment 7 GM TUBE TOP PRN (12:09)
[2018-04-27] MEDS ORDERED: Methylergonovine 0.2 MG/ML VIAL IM PRN (12:09)
[2018-04-27] MEDS ORDERED: Preparation H Ointment 28 GM TUBE PR PRN (12:09)
--- NOTE | 2018-04-27 12:17 | PDOC.EVN ---
Event Note - Event Note Event Note: 04/27/2018 at 12:15 Patient with QBL 1984 mL 2/2 deep right sided vaginal laceration and right side wall laceration. Lacerations were repaired. Bleeding minimized. BP 88/53 with pulse of 100. Type and cross matched 2 units pRBC's. Second IV placed. Pit and LR hanging. Will bolus patient 1L LR. Stat H&H pending. Transfuse as necessary. Ethel Glynn, DO PGY-2
[2018-04-27] MEDS ORDERED: NS / Oxytocin 40 units/1000ml 1,000 ML ONE (12:22)
--- NOTE | 2018-04-27 12:25 | PDOC.OPDEL ---
OB Operative/Delivery Note Delivery Dr/Surgeon: Joey Glynn Pre-Delivery Diagnosis: active labor Procedure/Post Delivery Dx: spontaneous vaginal delivery Anesthesia: epidural - Findings A Sex: male Weight: 4.082 kg - 1 min: 9 - 5 min: 9 - Additional Findings/Plan Placenta delivered: spontaneous Repaired Obstetrical Laceration: vaginal (deep left sided vaginal laceration) Estimated blood loss: QBL 1984 mL Compilations/Other Findings: Delivering Physician: Gretta Attending: Joey Procedure: Spontaneous Vaginal Delivery Anesthesia: Epidural QBL: 1934 ml Pre-op Diagnosis: 1. Term intrauterine in labor 2. GBS positive 3. Placenta previa, resolved Post-op Diagnosis: 1. Term intrauterine , delivered 2. same as above 3. PPH 2/2 vaginal lacerations Indications: A 22y/o female presents in active labor Delivery Note: This is 22 yo F @ 40.3 wks who delivered a viable M at 11:14 on 04/27/2018. Following an uneventful antepartum course, a vigorous M was delivered over an intact perineum in the occipitoanterior position. Anterior shoulder and then remainder of the body delivered. The head was held down and mouth and nares were bulb suctioned. Cord clamped and cut and cord blood collected. Placenta delivered intact with a 3 vessel cord noted. Fundal massage was performed and the fundus was firm. The cervix and vagina were inspected and a deep left sided vaginal laceration was noted. It was repaired using 3-[address] A smaller vaginal side wall laceration was also noted and repaired in similar fashion. Both lacerations were hemostatic after repair. However, patient was noted to have PPH 2/2 to lacerations and will need to be monitored closely. was having periodic decelerations during the delivery process; however, infant went to nursery in good condition for routine care. Apgars were 9/9 at 1 & 5 minutes, respectively. Patient tolerated delivery well and went to after routine recovery/ care. Post delivery plan: recovery in LICU
[2018-04-27] MEDS ORDERED: Lactated Ringer's 1,000 ML IV SCH (12:30)
[2018-04-27] MEDS: NS / Oxytocin 40 units/1000ml 1,000 ML IV SCH ×2 (12:45→17:26)
[2018-04-27 12:54] LABS: Hemoglobin 10.3 g/dL (12.0-16.0); Mean Corpuscular HGB CONC 33.7 g/dL (32.0-36.0); Mean Corpuscular Hemoglobin 29.5 pg (27.0-31.0); Mean Corpuscular Volume 87.5 fL (78.0-98.0); Mean Platelet Volume 9.1 fL (7.4-10.4); Platelet Count 181 thou/uL (130-400); RBC Distribution Width 13.5 % (11.5-14.5); Red Blood Cell (RBC) Count 3.48 mill/uL (4.20-5.40); White Blood Cell (WBC) Count 14.9 thou/uL (4.8-10.8)
--- NOTE | 2018-04-27 16:17 | RAD ---
AP PELVIS: 04/27/18 HISTORY: Missing sponge after delivery. This included the lower half of the abdomen and pelvis region. The findings were discussed with Esa perkins the charge nurse who states this was a vaginal delivery. I do not see any type of retained sponge i n the region of the vagina. There is a linear metallic radiopaque density over the mid abdomen, overl marlene the mid lumbar spine. This was not the typical appearance of a retained sponge and given the fac t that this was a vaginal delivery, this is presumed to be extrinsic to the patient. If there is a hi gh degree of suspicion of some unusual position for retained sponge, then repeat film after thoroughl y looking extrinsic to the patient would be recommended. IMPRESSION: No evidence of any retained sponge in the region of the vagina. Linear density overlying the mid lumb ar spine is probably extrinsic to the patient. POS: HORTENSIA
[2018-04-27] MEDS: Ibuprofen 800 MG TAB PO SCH (21:39)
[2018-04-27] MEDS: Docusate Calcium (SURFAK) 240 MG CAP PO SCH (21:39)
[2018-04-28] MEDS: Ibuprofen 800 MG TAB PO SCH ×3 (07:17→13:46)
[2018-04-28 07:22] LABS: #Eosinphils 0.1 thou/uL (0.0-0.7); #Lymphocytes 2.4 thou/uL (1.20-3.40); #Monocytes 0.9 thou/uL (0.11-0.59); #Neutrophils 5.1 thou/uL (1.40-6.50); %Basophils 0.4 % (0.0-1.0); %Eosinophils 1.4 % (0.0-10.0); %Lymphocytes 28.3 % (21.0-51.0); %Monocytes 10.1 % (0.0-10.0); %Neutrophils 59.8 % (42.0-75.0); Hemoglobin 7.6 g/dL (12.0-16.0); Mean Corpuscular HGB CONC 33.9 g/dL (32.0-36.0); Mean Corpuscular Hemoglobin 29.6 pg (27.0-31.0); Mean Corpuscular Volume 87.5 fL (78.0-98.0); Mean Platelet Volume 9.3 fL (7.4-10.4); Platelet Count 157 thou/uL (130-400); RBC Distribution Width 13.7 % (11.5-14.5); Red Blood Cell (RBC) Count 2.55 mill/uL (4.20-5.40); White Blood Cell (WBC) Count 8.4 thou/uL (4.8-10.8)
[2018-04-28] MEDS: Ferrous Sulfate 325 MG TAB PO SCH ×3 (08:55→16:58)
[2018-04-28] MEDS: Lactated Ringer's 1,000 ML IV SCH (08:55)
[2018-04-28] MEDS: Penicillin G 2.5 MILL.units 2.5 MILL.UNITS in Premix Bag 1 BAG IVPB SCH (08:56)
[2018-04-28] MEDS: Prenatal Vitamin 1 TAB PO SCH (08:58)
[2018-04-28] MEDS: Docusate Calcium (SURFAK) 240 MG CAP PO SCH (08:58)
[2018-04-28] MEDS ORDERED: Adacel (T-DAP) 0.5 ML SYRINGE IM ONE (09:00)
--- NOTE | 2018-04-28 10:34 | PDOC.PP ---
Post Progress Note Post Day #: 1 Subjective: 22yo delivered LAURA Devi at 40.4wks by . Pain is well controlled. She does feel dizzy when she is up walking. Was worried she was going to fall or pass out when she got up without the nurses assistance the last time she got up to use the rest room. Pain is well controlled. Tolerating PO. PO intake tolerated: yes Flatus: yes Ambulation: yes Vital Signs (12 hours) Temp Pulse Resp BP Pulse Ox 04/28/18 07:50 98.1 F 104 H 18 105/55 L 98 04/27/18 23:35 98.4 F 106 H 17 120/77 100 Weight Weight 97.522 kg - Physical Examination General: NAD Cardiovascular: no m/r/g, RRR Respiratory: clear to auscultation bilaterally Abdominal: + bowel sounds, lochia, appropriately TTP Fundus firm & at: umbilicus Neurological: no gross focal deficits Psychiatric: A&Ox3, normal affect Result Diagrams: 04/28/18 07:11 Additional Labs: Post Labs Blood Type O POSITIVE 04/27/18 01:20 Hep Bs Antigen Non-Reactive S/CO (NonReactive) 04/27/18 01:20 (1) Term delivered Code(s): O80 - ENCOUNTER FOR FULL-TERM UNCOMPLICATED DELIVERY Status: Acute (2) hemorrhage Code(s): O72.1 - OTHER IMMEDIATE HEMORRHAGE Status: Acute - Assessment/Plan 22yo delivered LAURA Devi at 40.4wks by Term delivered - Continue routine PP care - blood pressures 90-100's/50-77 - Slightly tachycardic 105 PPH - AM H/H: 7.6/22.4 (Initial Hgb: 13.1) - QBL: 1984 - Typed and screened and 2U pRBCs ready - Will check orthostatic VS and give 1L NS prior to transfusion - Will transfuse 1U, 2hr post transfusion H&H
[2018-04-28] MEDS ORDERED: Sodium Chloride 0.9% 1,000 ML IV SCH (11:30)
[2018-04-28 21:48] LABS: Hemoglobin 7.8 g/dL (12.0-16.0); Mean Corpuscular Hemoglobin 29.4 pg (27.0-31.0); Mean Corpuscular Volume 86.5 fL (78.0-98.0); Mean Platelet Volume 8.5 fL (7.4-10.4); Platelet Count 163 thou/uL (130-400); RBC Distribution Width 13.5 % (11.5-14.5); Red Blood Cell (RBC) Count 2.64 mill/uL (4.20-5.40)
[2018-04-29] MEDS: Ibuprofen 800 MG TAB PO SCH ×2 (05:04→05:05)
[2018-04-29] MEDS: Docusate Calcium (SURFAK) 240 MG CAP PO SCH ×2 (05:05→09:16)
--- NOTE | 2018-04-29 07:15 | PDOC.PP ---
Post Progress Note Post Day #: 2 Subjective: Feeling well this AM, ready to go home. Dizziness has improved after blood transfusion, she also feels much better in general. Minimal lochia. Ambulating and tolerating PO. No questions or concerns. PO intake tolerated: yes Flatus: yes Ambulation: yes Vital Signs (12 hours) Pulse Ox 04/28/18 20:00 100 Weight Weight 97.522 kg - Physical Examination General: NAD Cardiovascular: no m/r/g, RRR Respiratory: clear to auscultation bilaterally, non-labored breathing Abdominal: + bowel sounds, lochia, appropriately TTP Fundus firm & at: below umbilicus Neurological: no gross focal deficits Psychiatric: A&Ox3, normal affect Result Diagrams: 04/28/18 21:39 Additional Labs: Post Labs Blood Type O POSITIVE 04/27/18 01:20 Hep Bs Antigen Non-Reactive S/CO (NonReactive) 04/27/18 01:20 (1) Term delivered Code(s): O80 - ENCOUNTER FOR FULL-TERM UNCOMPLICATED DELIVERY Status: Acute (2) hemorrhage Code(s): O72.1 - OTHER IMMEDIATE HEMORRHAGE Status: Acute - Assessment/Plan 22yo delivered LAURA Devi at 40.4wks by Term delivered - Continue routine PP care - Encourage breast feeding - Undecided about PP contraception, will f/u with Dr Gagnon to decide PPH - QBL: 1983 - S/p transfusion 1U pRBCs, post transfusion H&H: 7.8/22.9 from 7.6/22.4 ( Initial Hgb: 13.1) - Positive orthostatics 04/28, given 1L NS bolus prior to transfusion - Symptoms have resolved after transfusion Dispo: Discharge today Addendum - Attending - Attending Attestation Date/Time: 05/02/18 7214 I personally evaluated the patient and discussed the management with Dr. Almaraz I agree with the History, Examination, Assessment and Plan documented above with any addition or exceptions noted below.
[2018-04-29] MEDS: Lactated Ringer's 1,000 ML IV SCH ×2 (08:19→08:20)
[2018-04-29] MEDS: Prenatal Vitamin 1 TAB PO SCH (09:15)
[2018-04-29] MEDS: Ferrous Sulfate 325 MG TAB PO SCH (09:15)
[2018-04-29 10:46] VITALS: BP 105/85; TEMP 98.7
== END 2018-04-29 13:30 | disposition home or self-care (01) | DRG 807 ==
LOC: L&D/OP 23:25 → L&D 04-27 07:06 → 3SW 04-27 19:49
PROVIDERS: ADMIT Obstetrics & Gynecology; ATTEND Obstetrics & Gynecology
PROC: 10E0XZZ Delivery of Products of Conception, External Approach (ICD-10-PCS; principal; 2018-04-27)
PROC: 0UQGXZZ Repair Vagina, External Approach (ICD-10-PCS; 2018-04-27)
PROC: 30233N1 Transfusion of Nonautologous Red Blood Cells into Peripheral Vein, Percutaneous Approach (ICD-10-PCS; 2018-04-28)
DX: O99.824 Streptococcus B carrier state complicating childbirth (principal); Z37.0 Single live birth; O48.0 Post-term pregnancy; O71.4 Obstetric high vaginal laceration alone; O72.1 Other immediate postpartum hemorrhage; O99.52 Diseases of the respiratory system complicating childbirth; J45.909 Unspecified asthma, uncomplicated; O76 Abnormality in fetal heart rate and rhythm complicating labor and delivery; Z3A.40 40 weeks gestation of pregnancy
CPT/HCPCS: 36415; 36430; 51702; 72170; 82805; 85025; 85027; 86780; 86850; 86900; 86901; 87340; 99285; J2001; J2540; J3490; J7050; P9016

== ENCOUNTER 2018-05-11 05:23 | Emergency (ER) | payer OTHER ==
[2018-05-11 05:57] LABS: Bilirubin Negative (Negative); Blood, Urine Small (Negative); Clarity CLOUDY (Clear); Glucose, Urine (Dipstick) Negative (Negative); Leukocyte Moderate (Negative); Nitrite Negative (Negative); Protein, Urine (Dipstick) 30 mg/dL (Neg-Trace); Specific Gravity, Urine 1.023 (1.002-1.036); Urobilinogen 0.2 mg/dL (0.2-1.0)
[2018-05-11 05:59] LABS: Bacteria/HPF None Seen HPF (None Seen); Pathc Cast-AUWi Flag 2.18 (0-2.49); Squamous Epithelial 0-3 HPF (0-3)
[2018-05-11 06:13] LABS: Yeast-AUWi Flag 48.4 (0-25.0)
[2018-05-11 06:21] LABS: Yeast-All Forms None Seen HPF (None Seen)
[2018-05-11 06:31] LABS: Hyaline Casts/LPF NONE SEEN LPF (0-3 Hyaline)
[2018-05-11 06:43] LABS: #Basophils 0.1 thou/uL (0.0-0.2); #Eosinphils 0.2 thou/uL (0.0-0.7); #Lymphocytes 3.2 thou/uL (1.20-3.40); #Monocytes 0.6 thou/uL (0.11-0.59); #Neutrophils 3.9 thou/uL (1.40-6.50); %Eosinophils 2.7 % (0.0-10.0); %Lymphocytes 40.2 % (21.0-51.0); %Monocytes 7.9 % (0.0-10.0); %Neutrophils 48.3 % (42.0-75.0); Hemoglobin 10.8 g/dL (12.0-16.0); Mean Corpuscular HGB CONC 32.4 g/dL (32.0-36.0); Mean Corpuscular Volume 86.4 fL (78.0-98.0); Mean Platelet Volume 7.5 fL (7.4-10.4); Platelet Count 460 thou/uL (130-400); Red Blood Cell (RBC) Count 3.84 mill/uL (4.20-5.40)
[2018-05-11] MEDS ORDERED: Morphine 4 MG/ML VIAL ONE (06:43)
[2018-05-11] MEDS ORDERED: cefTRIAXone\\ROCEPHIN 1 GM VIAL ONE (06:43)
[2018-05-11 07:03] LABS: ALT (SGPT) 11 U/L (8-55); AST (SGOT) 11 U/L (5-34); Albumin 3.5 g/dL (3.5-5.0); Alkaline Phosphatase 111 U/L (40-150); Anion Gap 12 mmol/L (10-20); BUN (Urea Nitrogen) 11 mg/dL (7.0-18.7); Bilirubin, Total 0.2 mg/dL (0.2-1.2); Calc. Creatinine Clearance 0 mL/min (70-130); Calcium 9.3 mg/dL (7.8-10.44); Carbon Dioxide 26 mmol/L (22-29); Chloride 105 mmol/L (98-107); Estimated GFR-MDRD 90; Globulin 3.3 g/dL (2.4-3.5); Glucose 98 mg/dL (70-105); Potassium 3.9 mmol/L (3.5-5.1); Protein, Total 6.8 g/dL (6.0-8.3); Sodium 139 mmol/L (136-145)
[2018-05-11 07:05] LABS: Pregnancy Test - Urine (BHCG) Negative (Negative); Pregu Control Background? CLEAR/WHITE (CLR/WHITE); Pregu Control Bar Appear? YES (CONTROL BAR); Specific Gravity 1.023 (1.002-1.036)
[2018-05-11] MEDS ORDERED: Ketorolac Tromethamine 30 MG/ML VIAL ONE (08:01)
--- NOTE | 2018-05-11 08:44 | CT ---
CT ABDOMEN AND PELVIS WITHOUT CONTRAST STONE PROTOCOL: Date: 05/11/18 HISTORY: Flank pain. COMPARISON: None. FINDINGS: The lung bases are clear. No pericardial effusion. No nephroureterolithiasis or hydroureteronephrosis. No secondary evidence of recently passed stone. The appendix is visualized and is normal. No dilated loops of large or small bowel. Noncontrast evalu ation of the spleen, pancreas, liver, and gallbladder appear unremarkable. There may be some layering cholelithiasis, although is difficult to evaluate on this noncontrast examination. IMPRESSION: 1. No nephroureterolithiasis or hydroureteronephrosis. No secondary evidence of recently passed ston e. 2. Normal appendix. 3. No acute inflammatory process in the abdomen or pelvis. 4. Possibly some cholelithiasis. POS: HORTENSIA
== END 2018-05-11 08:15 | disposition home or self-care (01) ==
LOC: ERS 05:23
DX: N12 Tubulo-interstitial nephritis, not specified as acute or chronic (principal); J45.909 Unspecified asthma, uncomplicated; F41.9 Anxiety disorder, unspecified; F32.9 Major depressive disorder, single episode, unspecified; Z79.899 Other long term (current) drug therapy
CPT/HCPCS: 36415; 74176; 80053; 81003; 81015; 81025; 85025; 87086; 96365; 96375; J0696; J1885; J2270

== ENCOUNTER 2019-02-10 09:24 | Emergency (ER) | payer MEDICAID, SELFPAY ==
[2019-02-10 10:33] LABS: #Eosinphils 0.1 thou/uL (0.0-0.7); #Monocytes 0.5 thou/uL (0.11-0.59); #Neutrophils 6.6 thou/uL (1.40-6.50); %Basophils 0.4 % (0.0-1.0); %Eosinophils 1.2 % (0.0-10.0); %Lymphocytes 21.6 % (21.0-51.0); %Monocytes 5.3 % (0.0-10.0); %Neutrophils 71.6 % (42.0-75.0); Hemoglobin 13.6 g/dL (12.0-16.0); Mean Corpuscular HGB CONC 33.4 g/dL (32.0-36.0); Mean Corpuscular Hemoglobin 29.9 pg (27.0-31.0); Mean Corpuscular Volume 89.5 fL (78.0-98.0); Mean Platelet Volume 7.7 fL (7.4-10.4); Platelet Count 240 thou/uL (130-400); RBC Distribution Width 12.3 % (11.5-14.5); Red Blood Cell (RBC) Count 4.54 mill/uL (4.20-5.40); White Blood Cell (WBC) Count 9.2 thou/uL (4.8-10.8)
[2019-02-10 10:36] LABS: BHCG - Serum POSITIVE (NEGATIVE); Pregs Control Background? CLEAR/WHITE (CLR/WHITE); Pregs Control Bar Appear? YES (CONTROL BAR)
[2019-02-10 10:57] LABS: Anion Gap 11 mmol/L (10-20); BUN (Urea Nitrogen) 9 mg/dL (7.0-18.7); Calc. Creatinine Clearance 0 mL/min (70-130); Calcium 8.6 mg/dL (7.8-10.44); Carbon Dioxide 21 mmol/L (22-29); Chloride 105 mmol/L (98-107); Estimated GFR-MDRD Greater than 90; Glucose 95 mg/dL (70-105); Potassium 4.2 mmol/L (3.5-5.1); Sodium 133 mmol/L (136-145)
--- NOTE | 2019-02-10 11:09 | ULT ---
Obstetric sonogram transabdominal and transvaginal imaging with duplex evaluation HISTORY: Early . Pelvic pain. FINDINGS: Urinary bladder is unremarkable. Uterus measures up to 10.4 cm. Gestational sac at the uter ine fundus contains a small yolk sac and pole. Heart motion calculated at 157 bpm. Measurements correlate with 6 weeks 2 days gestational age giving an estimated date of delivery of . Very small subchorionic fluid collection. Physiologic amount of free fluid within the cul-de-sac. Right ovary measures up to 2.2 cm and the left 2.8 cm. Each contains follicles and demonstrates good color and spectral Doppler flow. IMPRESSION: Single viable intrauterine gestation. Estimated gestational age 6 weeks 2 days.
[2019-02-10 12:53] LABS: Bacteria/HPF None Seen HPF (None Seen); Bilirubin Negative (Negative); Blood, Urine 2+ (Negative); Clarity Clear (Clear); Glucose, Urine (Dipstick) Normal (Negative); Leukocyte 250 Leu/uL (Negative); Nitrite Negative (Negative); Protein, Urine (Dipstick) Negative (Neg-Trace); Urobilinogen Normal mg/dL (Less than 2); WBC/HPF 0-3 HPF (0-3)
[2019-02-11 20:11] LABS: Chlamydia by PCR Not Detected (NotDetected); GC by PCR Not Detected (NotDetected)
== END 2019-02-10 13:44 | disposition home or self-care (01) ==
LOC: ERS 09:24
DX: O20.0 Threatened abortion (principal); O99.511 Diseases of the respiratory system complicating pregnancy, first trimester; J45.909 Unspecified asthma, uncomplicated; O99.341 Other mental disorders complicating pregnancy, first trimester; F41.9 Anxiety disorder, unspecified; F32.9 Major depressive disorder, single episode, unspecified; Z3A.01 Less than 8 weeks gestation of pregnancy
CPT/HCPCS: 36415; 76856; 80048; 81003; 81015; 84702; 84703; 85025; 86900; 86901; 87086; 87480; 87491; 87510; 87591; 87660

== ENCOUNTER 2019-09-21 23:52 | Day surgery (SDC) | payer SELFPAY ==
--- NOTE | 2019-09-22 00:05 | PDOC.FPROB ---
FMR OB H&P: HPI - History of Present Illness Chief Complaint: decreased movement Indentification: 23F @ 38.2 wga by 6.2wk sono History of Present Illness: 23F @ 38.2 wga by 6.2wk sono here today for decreased movement. Patient states that Sunday night she heard a "pop" in her vagina and felt a pain, and it occurred again 2 hours later. She denies gross LOF or vaginal bleeding. No recent intercourse, last time last Sunday. She states she has been having ctx [id number] since she felt the "pop.". She reports that for the last 3 hours she has been having decreased movement so she decided to come in. She denies headaches. Endorses occasional blurry vision. Denies cp, abdominal pain, swelling. Endorses occasional SOB. has been complicated by: obesity, hx of asthma, GBS bacteriuria, and threatened AB early in the Primary Care Physician: Dallin FMR OB H&P: Current - Care : 2 Para: 1 Gestational age: 38.2 Due date: 10/04/19 Dating Criteria: 6.2wk sono - OB Labs Blood type: O RH: positive Antibody Screen: negative HIV: negative RPR: negative HepBsAg: negative Rubella: immune Gonorrhea: negative Chlamydia: negative Pap Smear: NILM 1 hour gtt: 112 GBS: positive FMR OB H&P: History - Past Medical History PMH: Asthma - OB History OB History: on 04/27/2018 @ 40.2wga, placenta previa that resolved, pph, no other complications - 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: NILM, no hx of LEEP - Surgical History Sx History: Cholecystectomy 2019 - Social History Social History: Denies smoking, alcohol, drugs - Family History Family History: Paternal Uncle born with cardiac murmur that resolved Paternal great-uncle born with cardiac murmur that required surgery FMR OB H&P: Medications - Current Home Medications: Medication Instructions Recorded Confirmed Type Vit Calc,Iron,Folic 1 tab PO 02/07/18 History [ Vitamins] Allergies/Adverse Reactions: Allergies Allergy/AdvReac Type Severity Reaction Status Date / Time No Known Allergies Allergy Verified 09/22/19 00:11 FMR OB H&P: ROS - Review of Systems General: denies: fever/chills, recent trauma Eyes: reports: vision changes (occasional blurry vision). denies: eye pain ENT: denies: nasal congestion, rhinorrhea Cardiovascular: denies: chest pain, edema Respiratory: reports: shortness of breath (intermittent SOB, none today). denies: cough Gastrointestinal: denies: abdominal pain, vomiting Genitourinary (Female): reports: contractions ([id number]). denies: vaginal bleeding Musculoskeletal: denies: pain, stiffness Neurologic: denies: syncope, seizures Integumentary: denies: rash, lesions Endocrine: denies: cold intolerance, heat intolerance Hematologic/Lymphatic: denies: prolonged or excessive bleeding Psychological: denies: depression, anxiety FMR OB H&P: Vital Signs - Maternal Vital signs: BP 98/60, p91, T98.5F - Heart Tones Baseline: 130 Variability: moderate Acceleration: present Deceleration: absent Category: category 1 [place] contractions every: 10-15 FMR OB H&P: Physical Exam - Physical Exam General: NAD, awake, alert and oriented HEENT: normocephalic and atraumatic, EOMI Neck: supple, FROM Chest: non-tender to palpation, no lesions Heart: RRR, normal S1/S2 General: CTAB, no respiratory distress Abdomen: soft, gravid, non-tender, bowel sound present Musculoskeletal: pulses present, FROM in all four extremities Neurological: no clonus, no focal deficit Skin: no rash, good tugor Lymphatic: no unusual bruising or bleeding, no purpura Psychiatric: intact recent and remote memory, good judgement and insight - Pelvic Exam SVE: 1/thick/high FMR OB H&P: A/P Disposition: 23F @ 38.2 wga by 6.2wk sono here for decreased movement. #sIUP #Decreased movement -FHT: reactive strip, + accels, no decels, mod variability -cervical check: 1/thick/high @ 0015 -amnisure negative -no gross LOF -Bedside US: BEULAH ~6, DVP 2.83 -Return precautions discussed, will discharge patient home and plan to schedule eIOL later this week at 39wga -encouraged patient to go to her appt at [facility] and at [facility] for weekly BPP/NST later this week, patient agreeable #Hx of GBS bacteriuria -will need abx when patient goes into labor #Hx of asthma -VSS -will need to avoid hemabate during/after labor #Obesity -Patient has been getting routine weekly BPP/NST at [facility] -continue frequent monitoring #Hx of threatened AB early in -[place] Dispo: Reactive NST, bedside US DVP 2.83, amnisure negative; patient to be discharged with return precautions; will try to schedule eIOL at 39wga in the morning tmrw; patient to f/u at [facility] and [facility] this week for appt and weekly BPP[facility] Discussion: Date/Time: 09/22/19 0003 This H&P was discussed with [Gretta] and [Kalin] who agree with the above documentation and plan. Signature: María Millard MD, PGY-1 Addendum - Attending - Attending Attestation Date/Time: 09/22/19 0717 I personally evaluated the patient and discussed the management with Dr. Millard. I agree with the History, Examination, Assessment and Plan documented above with any addition or exceptions noted below. Presented for decreased movement but had noted movement at time of exam. NST reactive and bedside BEULAH 6cm with DVP 2.83 cm. will schedule eIOL this morning.
[2019-09-22] MEDS ORDERED: hydrALAZINE 20 MG/ML VIAL SLOW IVP PRN (00:09)
[2019-09-22 00:16] VITALS: BMI 35.1
[2019-09-22 00:56] LABS: Amnisure Test No Membranes Rupture (No Rupture)
[2019-09-22 00:57] LABS: Amnisure Internal Control QC ACCEPTABLE (ACCEPTABLE)
== END 2019-09-22 01:12 | disposition home or self-care (01) ==
LOC: L&D/OP 23:52
PROVIDERS: ATTEND Family Medicine
DX: O36.8130 Decreased fetal movements, third trimester, not applicable or unspecified (principal); O98.813 Other maternal infectious and parasitic diseases complicating pregnancy, third trimester; B95.1 Streptococcus, group B, as the cause of diseases classified elsewhere; O99.513 Diseases of the respiratory system complicating pregnancy, third trimester; J45.909 Unspecified asthma, uncomplicated; O99.213 Obesity complicating pregnancy, third trimester; E66.9 Obesity, unspecified; Z3A.38 38 weeks gestation of pregnancy
CPT/HCPCS: 76815; 84112; 99283

== ENCOUNTER 2019-09-25 09:23 | Outpatient (CLI) | payer SELFPAY, OTHER ==
[2019-09-25 18:35] LABS: SARS-CoV-2 MS2 Positive; SARS-CoV-2 N Gene Negative; SARS-CoV-2 S Gene Negative; SARS-CoV-2 orf1ab Negative
== END 2019-09-25 09:24 | disposition home or self-care (01) ==
LOC: ERS 09:23
PROVIDERS: ATTEND Family Medicine
DX: Z01.812 Encounter for preprocedural laboratory examination (principal); Z11.59 Encounter for screening for other viral diseases
CPT/HCPCS: 87635; U0003

== ENCOUNTER → 2019-09-29 11:20 | Inpatient (IN) | payer OTHER, SELFPAY ==
--- NOTE | 2018-04-25 07:55 | PDOC.FPROB ---
FMR OB H&P: HPI - History of Present Illness Chief Complaint: Contractions History of Present Illness: 22yo @40.1 by LMP c/w 12.3wk US presents with contractions q4-6 minutes apart at home. Endorses movement. Denies LOF, VB, or discharge. Denies headache, fever, edema, vision changes. FMR OB H&P: Current - Care : 1 Para: 0 Gestational age: 40.1 Due date: 04/24/18 Dating Criteria: LMP c/w 12.3wk US Course/Complications: Low lying placenta, resolved - OB Labs Blood type: O RH: positive Antibody Screen: negative HIV: negative RPR: negative HepBsAg: negative Rubella: immune Quad screen: negative Urine drug screen: not done Gonorrhea: negative Chlamydia: negative GBS: positive H&H: .7 FMR OB H&P: History - Past Medical History PMH: Asthma, inhaler PRN - has not used for last 2 years - OB History OB History: Low lying placenta, resolved - Family History Family History: DM- mother FMR OB H&P: Medications - Current Home Medications: Medication Instructions Recorded Confirmed Type Vit Calc,Iron,Folic 1 tab PO 02/07/18 History [ Vitamins] Allergies/Adverse Reactions: Allergies Allergy/AdvReac Type Severity Reaction Status Date / Time No Known Allergies Allergy Verified 04/25/18 06:37 FMR OB H&P: ROS - Review of Systems General: denies: fever/chills, weight/appetite/sleep changes Eyes: denies: vision changes, double vision, scotomas, floaters ENT: denies: nasal congestion, rhinorrhea Cardiovascular: denies: chest pain, edema Respiratory: reports: shortness of breath. denies: cough, congestion Gastrointestinal: reports: constipation. denies: abdominal pain, nausea, vomiting, diarrhea Genitourinary (Female): reports: vaginal bleeding (teaspoon amount mixed with mucus), contractions, vaginal pressure. denies: vaginal discharge, vaginal pain Musculoskeletal: denies: pain, swelling Neurologic: denies: seizures, headache Integumentary: denies: itching, rash FMR OB H&P: Vital Signs - Heart Tones Baseline: 130 Variability: moderate Acceleration: present Deceleration: absent Category: category 1 [place] contractions every: 2-6min FMR OB H&P: Physical Exam - Physical Exam General: NAD, awake, alert and oriented HEENT: normocephalic and atraumatic, MMM, conjunctiva clear, oropharynx clear Neck: supple, trachea midline Heart: RRR, normal S1/S2, pulses present, no edema General: CTAB, no respiratory distress Abdomen: soft, gravid, non-tender, bowel sound present Musculoskeletal: normal gait and station, no atrophy Neurological: DTR +2, no focal deficit Skin: no rash, capillary refill <2 seconds Psychiatric: intact recent and remote memory, good judgement and insight, normal mood and affect - Pelvic Exam Posadas score: 7 Estimated Weight: 8 lbs FMR OB H&P: A/P - Problem List (1) Intrauterine Status: Acute Code(s): Z34.90 - ENCNTR FOR SUPRVSN OF NORMAL , UNSP, UNSP TRIMESTER Disposition: 22yo at 40.1wk by LMP c/w 12.3wk US sIUP presenting with contractions - NST reactive - Continue monitoring, currently HR 130, Cat 1 - Contractions q2-6min - Cervical exam /-2, Posadas score 7 - Will recheck for cervical change - Cervical exam in clinic 1 week ago /-2 - VS stable, continue to monitor Asthma - Has rescue inhaler PRN, has not needed for 2 years Low lying placenta, resolved Discussion: Date/Time: 04/25/18 7445 This H&P was discussed with [] and [] who agree with the above documentation and plan. Addendum - Attending - Attending Attestation Date/Time: 04/25/18 1342 I personally evaluated the patient and discussed the management with Dr. Almaraz I agree with the History, Examination, Assessment and Plan documented above with any addition or exceptions noted below. On repeat exam pt had a sve /-2. there was no evidence of active labor. Pt is likely latently laboring. Pt was discharged home with morphine 8mg IM with 12.5mg phenergan IM. Labor percasutions given. PT has IOL scheduled 04/28
--- NOTE | 2018-04-27 00:47 | PDOC.EVN ---
Event Note - Event Note Event Note: Void entry
[2019-09-27] MEDS: Lactated Ringer's 1,000 ML IV SCH ×2 (06:05→10:54)
--- NOTE | 2019-09-27 06:15 | PDOC.FPROB ---
FMR OB H&P: HPI - History of Present Illness Chief Complaint: eIOL Indentification: 23 year old at 39.0 wks by 6.2 wk sono History of Present Illness: 23 year old at 39.0 wks by 6.2 wk sono presents for eIOL. Patient endorses occasional contractions. Denies vaginal bleeding, vaginal discharge, LoF. Endorses good movement. 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 No history of STD's. - Surgical History Sx History: Cholecystectomy 2018 - Social History Social History: Denies alcohol, tobacco, or drug use FMR OB H&P: Medications - Current Home Medications: Medication Instructions Recorded Confirmed Type Vit Calc,Iron,Folic 1 tab PO DAILY 02/07/18 09/27/19 History [ Vitamins] Allergies/Adverse Reactions: Allergies Allergy/AdvReac Type Severity Reaction Status Date / Time No Known Allergies Allergy Verified 09/22/19 00:11 FMR OB H&P: ROS - Review of Systems General: denies: fever/chills Eyes: denies: double vision, scotomas ENT: denies: nasal congestion, rhinorrhea, sore throat Cardiovascular: denies: chest pain, palpitation, edema Respiratory: denies: cough, congestion, shortness of breath Gastrointestinal: reports: abdominal pain. denies: nausea, vomiting, diarrhea Genitourinary (Female): reports: contractions. denies: dysuria, vaginal discharge, vaginal bleeding Musculoskeletal: denies: pain, stiffness Neurologic: denies: numbness, syncope Integumentary: denies: itching, rash Psychological: denies: depression, anxiety FMR OB H&P: Vital Signs - Maternal Vital signs: BP 117/57 Pulse 68 Afebrile - Heart Tones Baseline: 140 Variability: moderate Acceleration: present Deceleration: absent Category: category 1 [employer] contractions every: Few FMR OB H&P: Physical Exam - Physical Exam General: NAD, awake, alert and oriented HEENT: MMM, grossly normal vision, grossly normal hearing Heart: RRR, pulses present General: CTAB, no respiratory distress Abdomen: soft, gravid, non-tender Musculoskeletal: pulses present, FROM in all four extremities Neurological: no tremor, no focal deficit Skin: no rash, capillary refill <2 seconds Psychiatric: intact recent and remote memory, good judgement and insight, normal mood and affect - Pelvic Exam SVE: 50/-2, soft, off to right Presentation: Cephalic FMR OB H&P: A/P - Problem List (1) Elective induction of labor planned Current Visit: Yes Status: Acute Code(s): [id number] - (2) Term Current Visit: No Status: Acute Code(s): Z34.80 - ENCOUNTER FOR SUPRVSN OF NORMAL , UNSP TRIMESTER (3) History of hemorrhage Current Visit: Yes Status: Acute Code(s): Z87.59 - PERSONAL HISTORY OF COMP OF PREG, CHLDBRTH AND THE PUERP (4) GBS bacteriuria Current Visit: Yes Status: Acute Code(s): R82.71 - BACTERIURIA (5) Asthma Current Visit: Yes Status: Acute Code(s): J45.909 - UNSPECIFIED ASTHMA, UNCOMPLICATED Disposition: 23 year old at 39.0 wks by 6.2 wk sono eIEFRAÍN TIUP - SVE 50/-2, off to right side, soft - Cytotec to be placed - GBS positive, prophylaxis with Penicillin - Cat I strip GBS bacteriuria - Prophylaxis with Penicillin Asthma - Avoid hemabate if PPH Hx PPH - 2/2 vaginal laceration Dispo: Admit to L&D for eIOL. Discussion: Date/Time: 09/27/19613 This H&P was discussed with Dr. Gagnon who agrees with the above documentation and plan. Signature: Ethel Glynn, DO PGY-3 Addendum - Attending - Attending Attestation Date/Time: 09/27/19 0712 I personally evaluated the patient and discussed the management with Dr. Glynn. I agree with the History, Examination, Assessment and Plan documented above with any addition or exceptions noted below.
[2019-09-27] MEDS: Misoprostol 100 MCG TAB VAG SCH ×4 (06:16→18:24)
[2019-09-27 06:32] LABS: Hemoglobin 12.7 g/dL (12.0-16.0); Mean Corpuscular HGB CONC 32.9 g/dL (32.0-36.0); Mean Corpuscular Hemoglobin 29.6 pg (27.0-31.0); Mean Corpuscular Volume 89.8 fL (78.0-98.0); Mean Platelet Volume 9.5 fL (7.4-10.4); Platelet Count 201 thou/uL (130-400); RBC Distribution Width 12.5 % (11.5-14.5); Red Blood Cell (RBC) Count 4.29 mill/uL (4.20-5.40); White Blood Cell (WBC) Count 6.2 thou/uL (4.8-10.8)
[2019-09-27 07:12] LABS: Hep B Surf Ag Non-Reactive S/CO (NonReactive); Syphilis Antibody Nonreactive (Nonreactive); Syphilis Antibody Index 0.04 S/CO (<1.00 Non-Reactive)
[2019-09-27] MEDS: Penicillin G 2.5 MILL.units 2.5 MILL.UNITS in Premix Bag 1 BAG IVPB SCH ×4 (08:11→18:25)
--- NOTE | 2019-09-27 10:49 | PDOC.LDPN ---
Labor & Delivery Progress Note - Subjective Subjective: comfortable - Objective Vital signs reviewed and normal: yes General: NAD, resting SVE: 3/50/-2 FHT: category 1, variability present [place] contractions every: q3-5mins - Assessment (1) Asthma Code(s): J45.909 - UNSPECIFIED ASTHMA, UNCOMPLICATED Current Visit: Yes Status: Acute (2) Elective induction of labor planned Code(s): [id number] - Current Visit: Yes Status: Acute (3) GBS bacteriuria Code(s): R82.71 - BACTERIURIA Current Visit: Yes Status: Acute (4) Term Code(s): Z34.80 - ENCOUNTER FOR SUPRVSN OF NORMAL , UNSP TRIMESTER Current Visit: No Status: Acute -: Pt is a 23 yo at 39 wks by 6.2 wks david, EVY 10/04/19, here for elective induction of labor: #eIOL, Term - made change to 350/-2 with cytotec x 1. Posadas 7. Favorable cervix. Will initiate pitocin at this time. Cat 1 strip. # Ashtma - no hemabate if pt has PPH # GBS Positive - continue penicillin Dispo: start pit
[2019-09-27] MEDS: NS w/ Oxytocin 10 units 500 ML IV SCH (10:54)
--- NOTE | 2019-09-27 14:30 | PDOC.LDPN ---
Labor & Delivery Progress Note - Subjective Subjective: comfortable, no concerns - Objective Vital signs reviewed and normal: yes General: NAD, resting SVE: 6.5/90/-1 FHT: category 2, early decelerations, variability present [place] contractions every: q3 mins FSE placed: yes - Assessment (1) Asthma Code(s): J45.909 - UNSPECIFIED ASTHMA, UNCOMPLICATED Current Visit: Yes Status: Acute (2) Elective induction of labor planned Code(s): OWN1197 - Current Visit: Yes Status: Acute (3) GBS bacteriuria Code(s): R82.71 - BACTERIURIA Current Visit: Yes Status: Acute (4) Term Code(s): Z34.80 - ENCOUNTER FOR SUPRVSN OF NORMAL , UNSP TRIMESTER Current Visit: No Status: Acute Plan: continue plan of care -: Pt is a 23 yo at 39 wks by 6.2 wks sriramo, EVY 10/04/19, here for elective induction of labor: #eIOL, Term Pt SROM'ed at ~1340. Variables/early decels were noted. Pt did have good recovery to moderate variability strip with accelerations. Check was 6.5/90/- 1. Pitocin was stopped at that time. - restart pitocin - recheck in q2hrs # Ashtma - no hemabate if pt has PPH # GBS Positive - continue penicillin Dispo: restart pit
--- NOTE | 2019-09-27 15:45 | PDOC.OPDEL ---
OB Operative/Delivery Note Delivery Dr/Surgeon: Erwin/Aayush Pre-Delivery Diagnosis: elective induction Procedure/Post Delivery Dx: spontaneous vaginal delivery Anesthesia: epidural - Additional Findings/Plan Placenta delivered: spontaneous Repaired Obstetrical Laceration: vaginal (2nd degree) Estimated blood loss: 179 mls Compilations/Other Findings: Delivering Physician: Aayush/Erwin Attending: Aayush Procedure: Spontaneous Vaginal Delivery Anesthesia: epidural EBL: 179 ml Pre-op Diagnosis: 1. Term intrauterine in labor 2. GBS Positive with adequate treatment 3. Hx of Asthma 4. Obesity Post-op Diagnosis: 1. Term intrauterine , delivered 2-4. same as above Indications: A 23 y/o female presents to L&D for induction Delivery Note: This is 23 yo F @ 39.0 wks who delivered a viable F infant at 1504 on 09/27/19. Following an uneventful antepartum course, a vigorous female was delivered over an intact perineum in the occipitoanterior position. Anterior Shoulder and then remainder of the body delivered. No nuchal cord. The head was held down and mouth and nares were bulb suctioned. Cord clamped after delayed cord clamping and cut. No cord blood was collected due to delivering in bed. Placenta delivered intact in the Sanchez presentation with a 3 vessel cord noted. Fundal massage was performed and the fundus was firm. The cervix and vagina were inspected and found to have a 2nd degree vaginal laceration repaired with 3-0 vicryl in the usual fashion with good approximation and hemostasis without local anesthetic. Infant went to nursery in good condition for routine care. Apgars were 9/9 at 1 & 5 minutes, respectively. Patient tolerated delivery well and went to after routine recovery/care Dewey Hood DO 09/27/19 1600 Post delivery plan: routine recovery Addendum - Attending - Attending Attestation Date/Time: 09/28/19 0829 I was present and assisted with the controlled bed delivery of a viable female on 09/27/19 @1504. Apgars 9/9. Shoulder and body delivered easily. Placenta delivered spontaneously and intact. 3V cord. 2* vaginal lac repaired with 3-0 vicryl in usual fashion with good hemostasis. and mother in good condition. YTA=687 mL Resident: Erwin.
[2019-09-27] MEDS: Ibuprofen 800 MG TAB PO SCH (21:47)
[2019-09-27] MEDS: Docusate Calcium (SURFAK) 240 MG CAP PO SCH (21:47)
[2019-09-28] MEDS: Lactated Ringer's 1,000 ML IV SCH ×3 (04:49→13:22)
[2019-09-28] MEDS: Misoprostol 100 MCG TAB VAG SCH ×3 (04:49→08:32)
[2019-09-28] MEDS: Penicillin G 2.5 MILL.units 2.5 MILL.UNITS in Premix Bag 1 BAG IVPB SCH ×2 (04:50→04:52)
[2019-09-28] MEDS: NS w/ Oxytocin 10 units 500 ML IV SCH (04:51)
[2019-09-28] MEDS: Ibuprofen 800 MG TAB PO SCH ×3 (05:12→21:41)
--- NOTE | 2019-09-28 07:21 | PDOC.PP ---
Post Progress Note Post Day #: 1 Subjective: 23yo ->2 on PP day#1, delivered JEREMI Devi via yesterday at 1504. She reports doing well- voiding normally, ambulating well to the bathroom, pain well controlled. She reports lochia less than a period. She complains of inability to stool and no passage of gas at this point. Is without difficulty- denies nipple or breast pain. PO intake tolerated: yes Flatus: yes Ambulation: yes Vital Signs (12 hours) Temp Pulse Resp BP Pulse Ox 09/28/19 05:26 98.1 F 88 16 95/52 L 97 09/28/19 00:02 98.2 F 56 L 16 106/73 97 - Physical Examination General: NAD Cardiovascular: no m/r/g, RRR Respiratory: clear to auscultation bilaterally, non-labored breathing Abdominal: + bowel sounds, lochia, appropriately TTP Fundus firm & at: 2cm below umbilicus Extremities: negative homans (B) Neurological: no gross focal deficits Psychiatric: A&Ox3, normal affect Result Diagrams: 09/27/19 06:03 Additional Labs: Post Labs Blood Type O POSITIVE 09/27/19 06:03 Hep Bs Antigen Non-Reactive S/CO (NonReactive) 09/27/19 06:03 (1) , delivered Code(s): O80 - ENCOUNTER FOR FULL-TERM UNCOMPLICATED DELIVERY Status: Acute (2) GBS bacteriuria Code(s): R82.71 - BACTERIURIA Status: Acute - Assessment/Plan 23yo ->2 s/p 09/27/19, PPD#1. Term , Delivered: - Doing well. Encouraged ambulation to help bowels move. Otherwise, pain well controlled, voiding normally, and lochia wnl. - well without issues. GBS bacturia s/p adequate treatment - infant will need 48h observation so likely stay until tomorrow. Dispo: likely d/c home tomorrow. Addendum - Attending - Attending Attestation Date/Time: 09/28/19 1028 I personally evaluated the patient and discussed the management with Dr. Hood I agree with the History, Examination, Assessment and Plan documented above with any addition or exceptions noted below - Patient without complaints. Ambulating/voiding. Afebrile VSS. A/P: 1) PPD#1 s/p - continue routine care. Plan to d/c home tomorrow.
[2019-09-28] MEDS: Docusate Calcium (SURFAK) 240 MG CAP PO SCH ×2 (08:31→21:41)
[2019-09-28] MEDS: Prenatal Vitamin 1 TAB PO SCH (08:31)
--- NOTE | 2019-09-29 06:38 | PDOC.PP ---
Post Progress Note Subjective: 23yo ->2 on PP day#2, delivered TAGA female via on 09/26 at 1504. No complaints, pain contrlled. She reports continued lochia less than a period. Has had a normal BM. Is with formula supplementation. Vital Signs (12 hours) Temp Pulse Resp BP Pulse Ox 09/28/19 20:00 98.0 F 67 18 104/64 100 - Physical Examination General: NAD Cardiovascular: no m/r/g, RRR Respiratory: clear to auscultation bilaterally Abdominal: + bowel sounds Psychiatric: A&Ox3, normal affect Result Diagrams: 09/27/19 06:03 Additional Labs: Post Labs Blood Type O POSITIVE 09/27/19 06:03 Hep Bs Antigen Non-Reactive S/CO (NonReactive) 09/27/19 06:03 (1) , delivered Code(s): O80 - ENCOUNTER FOR FULL-TERM UNCOMPLICATED DELIVERY Status: Acute (2) GBS (group B Streptococcus carrier), +RV culture, currently Code(s): O99.820 - STREPTOCOCCUS B CARRIER STATE COMPLICATING Status : Acute - Assessment/Plan Term , Delivered: - No concerns - w/ supplementation GBS bacturia s/p adequate treatment - will be at 48hr observation this afternoon Dispo: Expect DC today Addendum - Attending - Attending Attestation Date/Time: 09/29/19 3691 I personally evaluated the patient and discussed the management with Dr. Stallworth. I agree with the History, Examination, Assessment and Plan documented above with any addition or exceptions noted below. Adequate GSB ppx. Progressing well. Plan for dc today.
[2019-09-29] MEDS: Lactated Ringer's 1,000 ML IV SCH (07:18)
[2019-09-29] MEDS: NS w/ Oxytocin 10 units 500 ML IV SCH (07:19)
[2019-09-29] MEDS: Docusate Calcium (SURFAK) 240 MG CAP PO SCH (07:46)
[2019-09-29] MEDS: Ibuprofen 800 MG TAB PO SCH (07:46)
[2019-09-29] MEDS: Prenatal Vitamin 1 TAB PO SCH (07:46)
[2019-09-29 07:53] VITALS: BP 105/64; TEMP 97.6
[~2019-09-29 11:20] MED LIST: Acetaminophen 325 MG TAB PO PRN; Acetaminophen 500 MG TAB PO PRN; Azithromycin 500 MG VIAL ONE; Betamet Acet/Betamet Na Ph 30 MG/5 ML VIAL ONE; Bicitra 30 ML UDCUP ONE; Bisacodyl 10 MG SUPP PR PRN; Bupivacaine/Epinephrine 0.25% 30 ML VIAL ONE; Butorphanol Tartrate 1 MG/ML VIAL SLOW IVP PRN; Carboprost 250 MCG/ML AMP IM PRN; Communication Order-Pharmacy FS SCH; Diphenoxylate HCl/Atropine Tablet PO PRN; EPHEDRINE 25 MG/5 ML SYRINGE SLOW IVP PRN; Eucerin (Mineral Oil/Petrolatum,White) 30 gm Jar TOP PRN; Fentanyl 4 mcg/Bup 0.1% Cadd 0 ML ONE; Fentanyl 4 mcg/Bup 0.1% Cadd 100 ML ONE; Fentanyl 4 mcg/Bupivacaine 0.1% Cassette 100 ML EPIDURAL SCH; Ibuprofen 800 MG TAB PO PRN; Lactated Ringer's 500 ML IV PRN; Lanolin Ointment 7 GM TUBE TOP PRN; Lidocaine 1% (PF) 30 ML VIAL SC PRN; Lidocaine 1.5% w/Epi 1:200K 30 ML VIAL (Epid Use) ONE; Lidocaine 1.5%/Epinephrine 1:200,000 5 ML AMPUL IJ ONE; Methylergonovine 0.2 MG/ML VIAL IM PRN; Milk Of Magnesia 30 ML UDCUP PO PRN; Misoprostol 200 MCG TAB ONE; Misoprostol 200 MCG TAB PR PRN; NS / Oxytocin 40 units/1000ml 1,000 ML IV PRN; NS / Oxytocin 40 units/1000ml 1,000 ML IV SCH; Naloxone HCl 0.4 mg/ml Vial IVP PRN; Ondansetron PF 4 MG/2 ML Vial IVP PRN; Ondansetron PF 4 MG/2 ML Vial ONE; Penicillin G Potassium 5 MILL.UNITS in Sodium Chloride 0.9% 100 ML IVPB SCH; Promethazine HCl 25 MG/ML VIAL IM PRN; diphenhydrAMINE 25 MG CAP PO PRN; diphenhydrAMINE 50 MG/ML VIAL IVP PRN; ePHEDrine/0.9% NaCl/PF SYRINGE 50 mg/10 ml SLOW IVP PRN; hydrALAZINE 20 MG/ML VIAL ONE; hydrALAZINE 20 MG/ML VIAL SLOW IVP PRN
== END | disposition home or self-care (01) | DRG 807 ==
LOC: L&D 04-27 03:16 → UNDOADMIN 04-27 03:16 → L&D 09-27 05:26 → 3SW 09-27 18:13
PROVIDERS: ADMIT Family Medicine; ATTEND Family Medicine
PROC: 10E0XZZ Delivery of Products of Conception, External Approach (ICD-10-PCS; principal; 2019-09-27)
PROC: 0KQM0ZZ Repair Perineum Muscle, Open Approach (ICD-10-PCS; 2019-09-27)
DX: O99.52 Diseases of the respiratory system complicating childbirth (principal); Z37.0 Single live birth; Z3A.40 40 weeks gestation of pregnancy; J45.909 Unspecified asthma, uncomplicated; O99.824 Streptococcus B carrier state complicating childbirth; O76 Abnormality in fetal heart rate and rhythm complicating labor and delivery; O70.1 Second degree perineal laceration during delivery; O99.214 Obesity complicating childbirth; E66.9 Obesity, unspecified
CPT/HCPCS: 36415; 51702; 85027; 86780; 86850; 86900; 86901; 87340; J0360; J0456; J0702; J2405; J2540; J2590; J3490